=== PATIENT | female | born 1955 | race Caucasian/White ===

== ENCOUNTER 2018-01-15 12:54 | Inpatient (IN) | payer BC, OTHER ==
[~2018-01-15] VITALS: Ht 165.1 cm; Wt 49.3 kg
[2018-01-15] VITALS (10 sets, daily range): BP systolic 76–183; BP diastolic 41–79
[~2018-01-15 12:54] MED LIST: CEFAZOLIN 1,000 MG ONE; DEXAMETHASONE 4 MG/ML, 1ML ONE
[2018-01-15] MEDS ORDERED: LACTATED RINGERS 1,000 ML IV SCH (15:34)
[2018-01-15] MEDS ORDERED: VANCOMYCIN PER PHARMACY MC PRN (16:00)
[2018-01-15 16:27] LABS: BASOPHILS # (AUTO) 0.04 x10^3/uL (0-0.1); BASOPHILS % (AUTO) 1 % (0-1); EOSINOPHILS # (AUTO) 0.12 x10^3/uL (0-0.4); EOSINOPHILS % (AUTO) 3 % (1-7); LYMPHOCYTES # (AUTO) 1.89 x10^3/uL (1-3.4); LYMPHOCYTES % (AUTO) 42 % (22-44); MD NO; MEAN CORPUSCULAR HGB CONC 34.1 g/dL (32.4-35.8); MEAN CORPUSCULAR VOLUME 93.8 fL (80-100); MEAN PLATELET VOLUME 6.9 fL (7.4-10.4); MONOCYTES # (AUTO) 0.42 x10^3/uL (0.2-0.8); MONOCYTES % (AUTO) 9 % (2-9); NEUTROPHILS # (AUTO) 2.03 x10^3/uL (1.8-6.8); NEUTROPHILS % (AUTO) 45 % (42-75); PLATELET COUNT 325 x10^3/uL (130-400); RED BLOOD COUNT 2.98 x10^6/uL (3.82-5.3); RED CELL DISTRIBUTION WIDTH 15.5 % (9.6-15.2)
[2018-01-15] MEDS ORDERED: INSU100I13 SC (16:28)
[2018-01-15] MEDS ORDERED: IRON PO (16:28)
[2018-01-15] MEDS ORDERED: LISI2.5T PO (16:28)
[2018-01-15] MEDS ORDERED: INSU100I18 SC (16:28)
[2018-01-15] MEDS ORDERED: ASCO500W4 PO (16:28)
[2018-01-15] MEDS ORDERED: PHARMACOKINETIC CONSULTATION MC ONE (16:30)
[2018-01-15] MEDS ORDERED: VANCOMYCIN 800 MG in SODIUM CHLORIDE 0.9% 100 ML IV ONE (16:30)
[2018-01-15 16:32] LABS: MICROSCOPIC AUTO
[2018-01-15 16:35] LABS: ANION GAP 10 mmol/L (5-15); CALCIUM 8.3 mg/dL (8.5-10.1); CHLORIDE 112 mmol/L (98-107); CREATININE 1.04 mg/dL (0.55-1.02)
[2018-01-15 16:42] LABS: CULTURE INDICATED? NO
[2018-01-15] MEDS ORDERED: D5%-0.45% NACL 1,000 ML IV STA (16:51)
[2018-01-15] MEDS ORDERED: ROPIvacaine/PF 0.2%, 20 ML ONE (17:16)
[2018-01-15] MEDS ORDERED: TRANEXAMIC ACID 100 MG/ML, 10ML ONE ×2 (17:16→18:24)
[2018-01-15] MEDS ORDERED: METHYLENE BLUE 10 MG/ML 10ML ONE (17:16)
[2018-01-15] MEDS ORDERED: KETOROLAC 60 MG/2 ML ONE (17:16)
[2018-01-15] MEDS ORDERED: SODIUM CHLORIDE 0.9% 100 ML ONE (17:17)
[2018-01-15] MEDS ORDERED: EPINEPHRINE 1 MG/ML, 1ML ONE ×2 (17:17)
[2018-01-15] MEDS ORDERED: VANCOMYCIN 1,000 MG ONE (17:17)
[2018-01-15] MEDS ORDERED: NEOSPORIN OINT, 15GM ONE (17:17)
[2018-01-15] MEDS ORDERED: D5%-0.45% NACL 1,000 ML IV ONE (17:30)
[2018-01-15] MEDS ORDERED: FENTANYL PF 100 MCG/2ML ONE ×2 (17:57→21:22)
[2018-01-15] MEDS ORDERED: morphine SULFATE/PF 1 MG/ML, 10ML ONE (18:54)
[2018-01-15] MEDS ORDERED: ONDANSETRON 2MG/ML, 2ML IV PRN (19:00)
[2018-01-15] MEDS ORDERED: OXYcodone 5 MG/5 ML ORAL.SOL UDC PO PRN (19:00)
[2018-01-15] MEDS ORDERED: hydrALAzine 20 MG/ML, 1ML IV PRN (19:00)
[2018-01-15] MEDS ORDERED: LABETALOL 5MG/ML, 20ML IV PRN (19:00)
[2018-01-15] MEDS ORDERED: MEPERIDINE/PF 25MG/0.5ML IVPush PRN (19:00)
[2018-01-15] MEDS ORDERED: PROMETHAZINE 25 MG/ML, 1ML IV PRN (19:00)
[2018-01-15] MEDS ORDERED: MORPHINE SULFATE 4 MG/ML, 1ML ONE (19:52)
[2018-01-15] MEDS ORDERED: ROCURONIUM 10MG/ML,5ML ONE (19:53)
[2018-01-15] MEDS ORDERED: EPHEDRINE 50 MG/ML, 1ML ONE (19:53)
[2018-01-15] MEDS ORDERED: PROPOFOL 10 MG/ML, 20ML ONE (19:53)
[2018-01-15] MEDS ORDERED: ONDANSETRON 2MG/ML, 2ML ONE (19:53)
[2018-01-15] MEDS ORDERED: OXYcodone 5 MG/5 ML ORAL.SOL UDC ONE (21:22)
[2018-01-15] MEDS: FENTANYL PF 100 MCG/2ML IV PRN ×3 (21:25→22:00)
[2018-01-15] MEDS ORDERED: HYDROmorphone 2 MG/ML, 1ML ONE (22:22)
[2018-01-15] MEDS: HYDROmorphone 2 MG/ML, 1ML IVPush PRN ×2 (22:26→22:35)
[2018-01-16] VITALS (12 sets, daily range): BP systolic 75–101; BP diastolic 30–48
[2018-01-16] MEDS ORDERED: HYDROcodone/APAP 5/325 TABLET PO PRN (00:30)
[2018-01-16] MEDS ORDERED: ACETAMINOPHEN 325 MG TABLET PO PRN (00:30)
[2018-01-16] MEDS ORDERED: POTASSIUM CHLORIDE 10 MEQ in D5%-0.45% NACL 1,000 ML IV SCH (00:30)
[2018-01-16] MEDS ORDERED: DIPHENHYDRAMINE 25 MG CAPSULE PO PRN (00:30)
[2018-01-16] MEDS: [UNRECOGNIZED DRUG - REMARK] MC SCH ×2 (01:00→08:31)
[2018-01-16] MEDS ORDERED: ACETAMINOPHEN 500 MG TABLET PO SCH (01:00)
[2018-01-16] MEDS ORDERED: ONDANSETRON 2MG/ML, 2ML IV PRN (01:00)
[2018-01-16] MEDS: CEFAZOLIN PMX 1GM/50ML 50 ML IVPB SCH ×2 (02:03→10:13)
[2018-01-16] MEDS: ACETAMINOPHEN 500 MG TABLET PO SCH ×4 (02:03→20:53)
[2018-01-16] MEDS: ENOXAPARIN 40 MG/0.4 ML SQ SCH (06:46)
[2018-01-16] MEDS: INSULIN REGULAR 100 UNITS/ML, 3ML VIAL SQ-INSULIN SCH ×2 (08:27→11:23)
[2018-01-16] MEDS: PREGABALIN 75 MG CAPSULE PO SCH ×2 (08:30→20:53)
[2018-01-16] MEDS ORDERED: LISINOPRIL 5 MG TABLET PO SCH (09:00)
[2018-01-16] MEDS ORDERED: INSULIN GLARGINE 100 UNITS/ML, PEN SQ-INSULIN SCH (10:00)
[2018-01-16] MEDS ORDERED: SODIUM CHLORIDE 0.9% 1,000ML IVBOLUS ONE ×2 (10:00→13:00)
[2018-01-16] MEDS: SODIUM CHLORIDE 0.9% 1,000 ML IV SCH ×2 (11:30→14:28)
[2018-01-16] MEDS: INSULIN GLARGINE 100 UNITS/ML, PEN SQ-INSULIN SCH ×2 (12:30→20:54)
[2018-01-16 13:49] LABS: ANION GAP 11 mmol/L (5-15); CALCIUM 7.3 mg/dL (8.5-10.1); CHLORIDE 113 mmol/L (98-107); CREATININE 1.74 mg/dL (0.55-1.02)
[2018-01-16 13:59] LABS: MEAN CORPUSCULAR HEMOGLOBIN 29.7 pg (27.0-34.8); MEAN CORPUSCULAR HGB CONC 33.4 g/dL (32.4-35.8); MEAN CORPUSCULAR VOLUME 88.7 fL (80-100); MEAN PLATELET VOLUME 7.8 fL (7.4-10.4); PLATELET COUNT 173 x10^3/uL (130-400); RED BLOOD COUNT 2.41 x10^6/uL (3.82-5.3); RED CELL DISTRIBUTION WIDTH 19.1 % (9.6-15.2)
[2018-01-16 14:18] LABS: BASOPHILS # (AUTO) 0.02 x10^3/uL (0-0.1); BASOPHILS % (AUTO) 0 % (0-1); EOSINOPHILS # (AUTO) 0.01 x10^3/uL (0-0.4); EOSINOPHILS % (AUTO) 0 % (1-7); LYMPHOCYTES # (AUTO) 1.34 x10^3/uL (1-3.4); LYMPHOCYTES % (AUTO) 23 % (22-44); MD SCAN; MONOCYTES % (AUTO) 8 % (2-9); NEUTROPHILS # (AUTO) 4.08 x10^3/uL (1.8-6.8); NEUTROPHILS % (AUTO) 69 % (42-75)
[2018-01-16] MEDS ORDERED: DEXTROSE 50%, 50ML SYRINGE ONE ×2 (17:01→18:42)
[2018-01-16] MEDS: DEXTROSE 50%, 50ML SYRINGE IVPush PRN (18:53)
[2018-01-16] MEDS ORDERED: SODIUM CHLORIDE 0.9%, 500ML IVBOLUS ONE (19:00)
[2018-01-16] MEDS ORDERED: GLUCAGON 1 MG IM PRN (19:00)
[2018-01-16] MEDS ORDERED: DEXTROSE 4 GM TAB.CHEW PO PRN (19:00)
[2018-01-16] MEDS: INSULIN LISPRO 100 UNITS/ML, PEN SQ-INSULIN SCH (19:46)
[2018-01-16] MEDS: KETOROLAC 30 MG/1 ML IV SCH (20:53)
[2018-01-16] MEDS: SODIUM CHLORIDE FLUSH 10ML SYR IVF SCH (20:54)
[2018-01-17] MEDS: DEXTROSE 50%, 50ML SYRINGE IVPush PRN (00:19)
[2018-01-17] MEDS: SODIUM CHLORIDE 0.9% 1,000 ML IV SCH ×2 (01:43→07:44)
[2018-01-17] MEDS: ACETAMINOPHEN 500 MG TABLET PO SCH ×2 (01:43→07:44)
[2018-01-17 01:56] VITALS: BP_SYST 92; BP_SYST 93; BP_DIAS 36; BP_DIAS 48
[2018-01-17] MEDS: KETOROLAC 30 MG/1 ML IV SCH (04:41)
[2018-01-17] MEDS: ENOXAPARIN 40 MG/0.4 ML SQ SCH (05:39)
[2018-01-17 06:48] VITALS: BP 93/53
[2018-01-17] MEDS: INSULIN LISPRO 100 UNITS/ML, PEN SQ-INSULIN SCH (07:00)
[2018-01-17] MEDS: PREGABALIN 75 MG CAPSULE PO SCH (07:44)
[2018-01-17] MEDS: SODIUM CHLORIDE FLUSH 10ML SYR IVF SCH (07:45)
[2018-01-17] MEDS ORDERED: MAGNESIUM SULFATE PMX 2GM/50ML 50 ML IV ONE (11:00)
[2018-01-17] MEDS ORDERED: ACETAMINOPHEN 325 MG TABLET PO ONE (11:00)
[2018-01-17] MEDS ORDERED: MAGNESIUM CHLORIDE 64 MG TABLET.DR PO SCH (21:00)
[2018-01-18] MEDS ORDERED: ENOXAPARIN 30 MG/0.3 ML SQ SCH (06:00)
== END 2018-01-17 11:35 | disposition left against medical advice (07) | DRG 467 ==
LOC: ORIP 15:10 → UNDOADMIN 16:25 → ORIP 16:25 → MERGE 17:30 → 4NOR 23:42 → 4EST 01-16 13:50
PROVIDERS: ADMIT Orthopaedic Surgery; ATTEND Orthopaedic Surgery
PROC: 0SPR0JZ Removal of Synthetic Substitute from Right Hip Joint, Femoral Surface, Open Approach (ICD-10-PCS; 2018-01-15)
PROC: 30233N1 Transfusion of Nonautologous Red Blood Cells into Peripheral Vein, Percutaneous Approach (ICD-10-PCS; 2018-01-15)
PROC: 0SRR019 Replacement of Right Hip Joint, Femoral Surface with Metal Synthetic Substitute, Cemented, Open Approach (ICD-10-PCS; principal; 2018-01-15 17:30)
DX: T84.010A Broken internal right hip prosthesis, initial encounter (principal); D62 Acute posthemorrhagic anemia; Z53.21 Procedure and treatment not carried out due to patient leaving prior to being seen by health care provider; I10 Essential (primary) hypertension; Y83.8 Other surgical procedures as the cause of abnormal reaction of the patient, or of later complication, without mention of misadventure at the time of the procedure; E86.0 Dehydration; E11.65 Type 2 diabetes mellitus with hyperglycemia; Z96.643 Presence of artificial hip joint, bilateral; I95.9 Hypotension, unspecified; D50.9 Iron deficiency anemia, unspecified; E83.42 Hypomagnesemia; Y92.89 Other specified places as the place of occurrence of the external cause; Z87.01 Personal history of pneumonia (recurrent); Z87.891 Personal history of nicotine dependence; Z79.4 Long term (current) use of insulin
CPT/HCPCS: 36415; 71045; 72170; 80048; 81001; 82947; 82962; 83735; 85014; 85018; 85025; 86850; 86900; 86923; 87081; 93005; 93306; C1713; G0378; J0171; J0690; J1100; J1170; J1650; J1815; J1885; J2274; J2405; J2704; J2795; J3010; J3370; J3480; C1762; C1776; J7030; J7120; P9016; Q9968

== ENCOUNTER 2018-02-22 18:36 | Emergency (ER) | payer OTHER ==
[~2018-02-22] VITALS: Ht 165.1 cm; Wt 40.0 kg
[~2018-02-22 18:36] MED LIST changes: +ASCO500W4 PO; -CEFAZOLIN 1,000 MG ONE; -DEXAMETHASONE 4 MG/ML, 1ML ONE; +INSU100I13 SC; +INSU100I18 SC; +IRON PO; +LISI2.5T PO
[2018-02-22 18:42] VITALS: BP 180/80
--- NOTE | 2018-02-22 18:52 | NUR ---
PT ARRIVES TO ED WITH C/O OF RIGHT HIP PAIN. PT REPORTS THAT SHE HAD A GLF AT HOME. PT HAS SHORTNENED AND ROTATED IN. PT REPORTS MINIMAL PAIN. PT HAS OBIVIOUS DEFROMITY. PT HAS GOOD PEDAL PULSE AT THIS TIME. ROM VERY PAINFUL HOWEVER. PT CONNECTED TO MONITORS. CALL LIGHT IN REACH.
--- NOTE | 2018-02-22 19:13 | NUR ---
pt to xray.
[2018-02-22] MEDS ORDERED: PROPOFOL 10 MG/ML, 20ML ONE (19:17)
[2018-02-22] MEDS ORDERED: PROPOFOL 10 MG/ML, 20ML IVPush ONE (19:30)
--- NOTE | 2018-02-22 19:37 | NUR ---
iv placed. pt resting wtih family at bedside.
--- NOTE | 2018-02-22 20:04 | NUR ---
AT BEDSIDE FOR SEDATION AND REDUCTION OF RIGHT HIP
--- NOTE | 2018-02-22 20:26 | NUR ---
TASK RN: THIS RN TO BEDSIDE TO ASSIST IN R HIP REDUCTION UNDER CONSCIOUS SEDATION PERFORMED BY MD TRUDI AND SHAKILA HILLMAN PA-C BP/SPO2/ECG MONITORING IN PLACE. CODE CART AVAILABLE. AMBU-BAG READY. ERP EXPLAINED PROCEDURE AND ANSWERED ALL QUESTIONS. CONSENT SIGNED PRIOR TO PROCEDURE AND WITNESSED BY THIS RN. 2005: TIME OUT PERFORMED. IV CONFIRMED PATENT. +R PEDAL PULSE 2006: PT MEDICATED BY ERP W/ 70MG PROPOFOL WITH DESIRED EFFECT. PT RESPIRATIONS REMAIN UNLABORED, PT REQUIRING INTERMITTENT JAW THRUST TO MAINTAIN AIRWAY. SPO2 REMAINS >90% ON 2L BY NC. BP TOLERATING MEDICATIONS 2008: PROCEDURE COMPLETE. REDUCTION OF R HIP ACHIEVED W/ SINGLE ATTEMPT BY SHAKILA NARVAEZ. +STRONG R PEDAL PULSE. PT MOSTLY SLEEPY, RESPIRATIONS EVEN/UNLABORED. SPO2 REMIANS >90% ON 2L BY NC. 2010: PT CONTINUES TO MAINTAIN OWN AIRWAY. ARROUSABLE TO PHYSICAL STIMULI. BP/SPO2/ECG MONITORING IN PLACE. NSR AND NORMOTENSIVE ON MONITOR. 2015: XRAY AT BEDSIDE. PT NOW MOSTLY AWAKE. DENIES PAIN/NAUSEA. CONTINUES TO MAINTAIN OWN AIRWAY. 2020: PT MOSTLY AWAKE, DENIES PAIN/NAUSEA. PT MAINTAINING SPO2 >90% ON RA. RR 14. REPORT TO SHIRLEY PARKINSON RN AND JAMARCUS RN VITALS AND ECG PRINTED AND ARE ON CHART.
[2018-02-23] MEDS ORDERED: PARO20TA98 PO (11:21)
[2018-02-26] MEDS ORDERED: IBUP200T49 PO (10:58)
[2018-02-26] MEDS ORDERED: ASPI-496 PO (10:59)
[2018-02-26] MEDS ORDERED: OXYC-302 PO (11:00)
[2018-02-26] MEDS ORDERED: FLUC200T4 PO (11:28)
[2018-02-26] MEDS ORDERED: CEFD300C37 PO (11:28)
== END 2018-02-22 20:57 | disposition home or self-care (01) ==
LOC: ED 20:05
DX: T84.020A Dislocation of internal right hip prosthesis, initial encounter (principal); F17.200 Nicotine dependence, unspecified, uncomplicated; W01.0XXA Fall on same level from slipping, tripping and stumbling without subsequent striking against object, initial encounter; Y93.89 Activity, other specified; Y92.69 Other specified industrial and construction area as the place of occurrence of the external cause; Y99.8 Other external cause status
CPT/HCPCS: 27250; 29505; 99285